=== PATIENT | male | born 1990 | race Caucasian/White ===

== ENCOUNTER 2017-06-19 14:09 | Emergency (ER) | payer OTHER ==
[~2017-06-19] VITALS: Ht 180.3 cm; Wt 75.3 kg
[~2017-06-19 14:09] MED LIST: NOHOMEMEDS
[2017-06-19 15:00] LABS: HEMOGLOBIN 19.1 G/DL (12.5-16.6); MCHC 35.4 G/DL (30.0-36.0); MCV 81.9 FL (86-99); PLATELET COUNT 276 K/uL (156-360); RBC DIS.WIDTH-CV 12.8 % (11.8-14.6); RBC DIS.WIDTH-SD 37.8 % (39-53); RED BLOOD COUNT 6.59 M/uL (4.00-5.50); WHITE BLOOD COUNT 11.8 K/uL (4.1-10.2)
[2017-06-19 15:06] LABS: ALBUMIN 4.9 g/dL (3.2-4.8); CHLORIDE 104 mEq/L (99-109); POTASSIUM 4.7 mEq/L (3.7-5.4); SODIUM 135 mEq/L (136-147)
[2017-06-19 15:09] LABS: GLUCOSE 143 mg/dL (70-99); TOTAL PROTEIN 8.6 g/dL (6.4-8.3)
[2017-06-19 15:12] LABS: ALKALINE PHOSPHATASE 100 IU/L (3-129); CREATININE 1.4 mg/dL (0.6-1.3); GFR ESTIMATE (CALCULATED) > 59 mL/min/ (58.99-99999)
[2017-06-19 15:13] LABS: UREA NITROGEN (BUN) 23 mg/dL (9-23)
[2017-06-19 15:14] LABS: AST (GOT) 25 IU/L (2-34)
[2017-06-19 15:15] LABS: ALT (GPT) 22 IU/L (3-49)
[2017-06-19 15:16] LABS: LIPASE 15 U/L (1.0-51.0)
[2017-06-19 15:21] LABS: APPEARANCE SL.HAZY ((CLEAR)); BILIRUBIN NEGATIVE; BLOOD NEGATIVE; COLOR YELLOW ((YELLOW)); GLUCOSE (STRIP) NEGATIVE; KETONES 80; LEUKOCYTES NEGATIVE; NITRITE NEGATIVE; PROTEIN (STRIP) 30; SPECIFIC GRAVITY 1.034 (1.000-1.030); UROBILINOGEN 0.2 MG/DL (0.2-1.0)
[2017-06-19 15:25] LABS: BACTERIA RARE /HPF; EPITHELIAL CELLS RARE /HPF; MUCUS 2+ /LPF; RED BLOOD CELLS 0-5 /HPF (0-5); UCUL ADDED? NO; WHITE BLOOD CELLS 0-5 /HPF (0-5)
[2017-06-19] MEDS ORDERED: ZOFRAN ODT4 MG PO (16:52)
[2017-06-19 17:16] VITALS: BP 121/73
== END 2017-06-19 17:17 | disposition home or self-care (01) ==
LOC: EME 14:09
DX: R11.2 Nausea with vomiting, unspecified (principal); J45.909 Unspecified asthma, uncomplicated
CPT/HCPCS: 80053; 81003; 83690; 85027; 99281; 99284